=== PATIENT | female | born 1980 | race Hispanic/Latino ===

== ENCOUNTER 2017-06-27 08:16 | Outpatient (CLI) | payer OTHER ==
--- NOTE | 2017-06-27 11:36 | MRI ---
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 Comparison: A 08-07-16 study. FINDINGS: The AC joint is unremarkable with a slightly laterally down sloping acromion. There is a tiny amount of edema change in the subacromial subdeltoid bursa. There is a focal bursal sided tear of the supras pinatus tendon. This measures approximately 6-7 mm in size. It appears to involving up to 50% of the thickness of the tendon in this one focal area. The infraspinatus tendon is intact. Subscapularis muscle and tendon are normal in appearance the biceps tendon is normal in position with in the bicipital groove. I do not appreciate any definitive labral abnormalities. The inferior glenohumeral ligament is intact . IMPRESSION: Moderate grade focal bursal sided tear of the supraspinatus tendon only measuring approximately 6 mm in size. There appear to be a tiny amount of fluid or edema change in the subacromial subdeltoid rece ss associated with this. The acromion is laterally downsloping. POS: [facility]
== END 2017-06-27 08:17 | disposition home or self-care (01) ==
LOC: MRI 08:16
PROVIDERS: ATTEND Family Medicine
DX: S46.912D Strain of unspecified muscle, fascia and tendon at shoulder and upper arm level, left arm, subsequent encounter (principal); S46.012D Strain of muscle(s) and tendon(s) of the rotator cuff of left shoulder, subsequent encounter

== ENCOUNTER 2017-07-22 07:50 | Emergency (ER) | payer OTHER ==
--- NOTE | 2017-07-22 09:29 | RAD ---
THREE VIEWS RIGHT HAND: HISTORY: Pain. FINDINGS: Joint space is preserved. No fracture. No cortical irregularity. No periosteal reaction. IMPRESSION: Unremarkable right hand 3 views. POS: [facility]
== END 2017-07-22 09:05 | disposition home or self-care (01) ==
LOC: ERS 07:50
DX: G56.01 Carpal tunnel syndrome, right upper limb (principal); E11.9 Type 2 diabetes mellitus without complications; D50.0 Iron deficiency anemia secondary to blood loss (chronic)

== ENCOUNTER 2018-07-18 00:11 | Outpatient (CLI) | payer OTHER ==
[2018-07-18 10:22] LABS: #Eosinphils 0.1 thou/uL (0.0-0.7); #Lymphocytes 1.3 thou/uL (1.20-3.40); #Monocytes 0.4 thou/uL (0.11-0.59); #Neutrophils 7.8 thou/uL (1.40-6.50); %Basophils 0.3 % (0.0-1.0); %Eosinophils 0.8 % (0.0-10.0); %Lymphocytes 13.7 % (21.0-51.0); %Monocytes 3.8 % (0.0-10.0); %Neutrophils 81.4 % (42.0-75.0); Hemoglobin 15.2 g/dL (12.0-16.0); Mean Corpuscular HGB CONC 33.7 g/dL (32.0-36.0); Mean Corpuscular Hemoglobin 30.9 pg (27.0-31.0); Mean Corpuscular Volume 91.8 fL (78.0-98.0); Mean Platelet Volume 7.5 fL (7.4-10.4); Platelet Count 351 thou/uL (130-400); RBC Distribution Width 11.7 % (11.5-14.5); Red Blood Cell (RBC) Count 4.92 mill/uL (4.20-5.40); White Blood Cell (WBC) Count 9.5 thou/uL (4.8-10.8)
[2018-07-18 10:54] LABS: Anion Gap 16 mmol/L (10-20); BUN (Urea Nitrogen) 13 mg/dL (7.0-18.7); Calc. Creatinine Clearance 0 mL/min (70-130); Calcium 8.8 mg/dL (7.8-10.44); Carbon Dioxide 19 mmol/L (22-29); Chloride 106 mmol/L (98-107); Estimated GFR-MDRD Greater than 90; Glucose 212 mg/dL (70-105); Potassium 3.4 mmol/L (3.5-5.1); Sodium 138 mmol/L (136-145)
== END 2018-07-18 00:12 | disposition home or self-care (01) ==
LOC: LABBT 00:11
PROVIDERS: ATTEND Orthopaedic Surgery Hand Surgery
DX: Z01.812 Encounter for preprocedural laboratory examination (principal); M65.4 Radial styloid tenosynovitis [de Quervain]; G56.01 Carpal tunnel syndrome, right upper limb
CPT/HCPCS: 80048; 85025

== ENCOUNTER 2018-07-19 06:37 | Day surgery (SDC) | payer OTHER ==
[2018-07-18 09:39] VITALS: BMI 33.6
[2018-07-19] MEDS ORDERED: Midazolam HCl 2 mg/2 ml Vial ONE ×2 (10:38→10:54)
[2018-07-19] MEDS ORDERED: Fentanyl 100 MCG/2 ML VIAL ONE (10:38)
[2018-07-19] MEDS ORDERED: Betamet Acet/Betamet Na Ph 30 MG/5 ML VIAL ONE (10:46)
[2018-07-19] MEDS ORDERED: Bupivacaine PF 0.5% 30 ML VIAL ONE (10:46)
[2018-07-19] MEDS ORDERED: Bacitracin Zinc Ointment 30 gm TUBE ONE (10:46)
[2018-07-19] MEDS ORDERED: PROPOFOL 200 MG/20 ML VIAL ONE (11:09)
[2018-07-19] MEDS ORDERED: Lidocaine 1% PF 5 ML VIAL ONE (11:09)
[2018-07-19] MEDS ORDERED: Dexamethasone 20 MG/5 ML VIAL ONE (11:09)
[2018-07-19] MEDS ORDERED: Ondansetron PF 4 MG/2 ML Vial ONE (11:09)
[2018-07-19] MEDS ORDERED: Ketorolac Tromethamine 30 MG/ML VIAL ONE (12:13)
--- NOTE | 2018-07-25 10:36 | OP ---
DATE OF PROCEDURE: 07/19/2018 PREOPERATIVE DIAGNOSES: 1. Right carpal tunnel syndrome. 2. Right . FINDINGS: 1. Very tight transverse carpal ligament with flattening, stippling, but no hourglass formation yet to median nerve. 2. First dorsal compartment tight with three sleeves of tendon found a separate compartment for the extensor pollicis brevis. PROCEDURES PERFORMED: 1. Median nerve neuroplasty, wrist/right carpal tunnel release. 2. First dorsal compartment release/extensor tenosynovectomy of the first dorsal compartment. 3. Celestone injected to the carpal tunnel. INJECTABLES: Local given 10 mL of 0.5% Marcaine preprocedure and 10 after for a total of 20 0.5% Marcaine without epinephrine. INDICATIONS: Failed conservative treatment to include injections, therapy, bracing, splinting, medications, lifestyle and activity modification. DESCRIPTION OF PROCEDURE: After successful general LMA technique by [facility], the limb was prepped and draped. The patient had time-out done appropriately and side that was marked matched the side on consent and procedures matched with consent. After the limb was exsanguinated, tourniquet inflated to 250 mmHg, tourniquet time would be 18 minutes. We then used a zigzag incision 1 cm centered over the radial styloid at the level of first dorsal compartment, carried through skin and subcutaneous tissue, recognized, retracted gently superficial radial nerve branches and released very tight first dorsal compartment band. The retinaculum was now released and we performed a small tendon separation. We found separate compartment and the two sleeves of the abductor. The extensor pollicis brevis compartment was released with a Luce blade as well. We left at least half of the compartment volar to protect the tendon from subluxation. We closed the wound with 2 mL Celestone applied first with interrupted 4-0 nylon epidermal closure only. We then entered a 2.5 cm incision centered along the ring finger, and for distal Urban cardinal line for approximately 6 mm distal to the volar wrist flexion crease. This was carried through skin and subcutaneous tissue, identified the palmaris longus and fascia. Going right along this at this level, we then entered the transverse carpal ligament, released it under visualization directly with loops, using combination of Luce blade and tenotomy scissors. Distally, there was no motor branch abnormality. We then looked proximally, stayed away from the median nerve by at least 3 to 4 mm and then flexed the wrist maximally and was able to release the transverse carpal ligament completely. We then placed a steroid injection of 3 mL Celestone here, waited 2 minutes, and then closed the wound after tourniquet deflation. The patient had this accomplished at the wrist with interrupted 4-0 nylon in a mattress pattern and the patient had a large bulky dressing applied leaving the operating room without evidence of anesthetic or operative complication. Job ID: [id number]
== END 2018-07-19 13:15 | disposition home or self-care (01) ==
LOC: SDC 06:37 → EEVIPCON 08:30 → SDC 13:15
PROVIDERS: ATTEND Orthopaedic Surgery Hand Surgery
PROC: 01N50ZZ Release Median Nerve, Open Approach (ICD-10-PCS; principal; 2018-07-19)
PROC: 0LB70ZZ Excision of Right Hand Tendon, Open Approach (ICD-10-PCS; principal; 2018-07-19)
DX: G56.01 Carpal tunnel syndrome, right upper limb (principal); M65.4 Radial styloid tenosynovitis [de Quervain]; Z79.899 Other long term (current) drug therapy; Z88.8 Allergy status to other drugs, medicaments and biological substances
CPT/HCPCS: J0690; J0702; J1100; J1885; J2001; J2250; J2405; J2704; J3010; S0020